=== PATIENT | male | born 1985 | race Two or more races ===

== ENCOUNTER 2017-03-13 01:22 | Emergency (ER) | payer OTHER ==
[~2017-03-13] VITALS: Ht 175.3 cm; Wt 90.7 kg
[~2017-03-13 01:22] MED LIST: OMEP20CA4 PO; PROP40TA7 PO
[2017-03-13] MEDS ORDERED: GABAPENTIN 800 MG TABLET (02:04)
[2017-03-13] MEDS ORDERED: IV NORMAL SALINE 1000 ML BAG IV ONE ×2 (02:45→06:15)
[2017-03-13] MEDS ORDERED: KETOROLAC TROMETHAMINE 15 MG INJ IV ONE (02:45)
[2017-03-13 03:05] LABS: BASOPHILS # (AUTO) 0.1 K/uL (0.0-8.0); BASOPHILS % (AUTO) 0.5 % (0.0-2.0); EOSINOPHILS # (AUTO) 0.5 K/uL (0.0-0.7); HEMATOCRIT 37.3 % (36.7-47.1); HEMOGLOBIN 12.7 g/dL (12.5-16.3); LYMPHOCYTES # (AUTO) 3.3 K/uL (20.0-40.0); LYMPHOCYTES % (AUTO) 33.3 % (20.5-51.5); MEAN CORPUSCULAR HEMOGLOBIN 29.8 uug (23.8-33.4); MEAN CORPUSCULAR HGB CONC 34 g/dL (32.5-36.3); MEAN CORPUSCULAR VOLUME 87.8 fL (73.0-96.2); MONOCYTES # (AUTO) 0.7 K/uL (2.0-10.0); MONOCYTES % (AUTO) 7.5 % (0.0-11.0); NEUTROPHILS # (AUTO) 5.4 K/uL (1.8-8.9); NEUTROPHILS % (AUTO) 53.7 % (38.5-71.5); PLATELET COUNT (AUTO) 203 K/uL (152-348); RED BLOOD CELL COUNT(AUTO) 4.25 MIL/uL (4.06-5.63)
[2017-03-13] MEDS ORDERED: KETOROLAC TROMETHAMINE 30 MG INJ ONE (03:12)
[2017-03-13 03:16] LABS: CARBON DIOXIDE 28 mmol/L (21-32); CHLORIDE 104 mmol/L (98-107); GLUCOSE 138 mg/dL (74-106); POTASSIUM 3.6 mmol/L (3.5-5.1); UREA NITROGEN, BLOOD 12 mg/dL (7-18)
[2017-03-13] MEDS ORDERED: ONDANSETRON IV *ER 4 MG/2 ML VIAL IV ONE ×2 (03:30→06:15)
[2017-03-13] MEDS ORDERED: HYDROMORPHONE 1 MG/1 ML DISP.SYRIN IV ONE ×2 (03:30→06:15)
[2017-03-13 03:36] LABS: ALANINE AMINOTRANSFERASE 40 U/L (16-63); ALKALINE PHOSPHATASE 95 U/L (50-136); ASPARTATE AMINOTRANSFERASE 18 U/L (15-37); BILIRUBIN,DIRECT < 0.1 mg/dL (0.0-0.2); BILIRUBIN,TOTAL 0.1 mg/dL (0.2-1.0); LIPASE 159 U/L (73-393); TOTAL PROTEIN, SERUM 6.5 g/dL (6.4-8.2)
[2017-03-13] MEDS ORDERED: ONDANSETRON 4 MG/2 ML VIAL ONE ×2 (03:55→06:29)
[2017-03-13] MEDS ORDERED: HYDROMORPHONE 2 MG/1 ML DISP.SYRIN ONE ×2 (03:55→06:29)
[2017-03-13 05:27] LABS: *BLOOD, URINE 3+ (NEGATIVE); *CLARITY,URINE SLIGHTLY CLOUDY (CLEAR); *COLOR,URINE YELLOW (YELLOW); *KETONES,URINE TRACE (NEGATIVE); *UROBILINOGEN,URINE 0.2 E.U./dl (NORMAL); LEUKOCYTE ESTERASE ,URINE NEGATIVE (NEGATIVE); NITRITE, URINE NEGATIVE (NEGATIVE); PH,URINE 7.5 (5.0-8.0); UGLUCOSE NEGATIVE (NEGATIVE)
[2017-03-13 05:28] LABS: *BILIRUBIN,URIN 1+ (NEGATIVE); *PROTEIN,URINE 1+ (NEGATIVE)
[2017-03-13 05:34] LABS: BACTERIA,URINE NONE SEEN /HPF (NONE SEEN); SQUAMOUS EPITHELIAL CELL,UR MODERATE /HPF (NONE SEEN); URINE AMORPHOUS PHOSPHATES MANY /HPF; WBC,URINE 0-3 /HPF (0-3)
[2017-03-13 05:35] LABS: MUCUS,URINE MODERATE /LPF (0-FEW)
--- NOTE | 2017-03-13 07:05 | NUR ---
Patient discharged to home in stable conditon. Written and verbal after care instructions given. Patient verbalizes understanding of instructions.
== END 2017-03-13 07:07 | disposition home or self-care (01) ==
LOC: ER 01:28
DX: G89.29 Other chronic pain (principal); R10.9 Unspecified abdominal pain; M54.9 Dorsalgia, unspecified; R11.2 Nausea with vomiting, unspecified; R31.9 Hematuria, unspecified; Z91.013 Allergy to seafood; G43.909 Migraine, unspecified, not intractable, without status migrainosus
CPT/HCPCS: 36415; 70030-TC; 83690; 85025; 85730; A4663; J1170; J1885; J2405; J7030

== ENCOUNTER 2017-11-26 14:31 | Emergency (ER) | payer OTHER ==
[~2017-11-26] VITALS: Ht 175.3 cm; Wt 93.0 kg
[~2017-11-26 14:31] MED LIST changes: +GABAPENTIN 800 MG TABLET
[2017-11-26] MEDS ORDERED: LACT10SO7 PO (15:06)
--- NOTE | 2017-11-26 15:07 | NUR ---
in room 5a
[2017-11-26] MEDS ORDERED: KETOROLAC TROMETHAMINE 30 MG INJ ONE (15:30)
[2017-11-26] MEDS ORDERED: DIAZEPAM 5 MG TABLET ONE ×2 (15:30→16:52)
[2017-11-26] MEDS ORDERED: MORPHINE SULFATE 4 MG/1 ML DISP.SYRIN ONE (15:31)
[2017-11-26] MEDS: MORPHINE SULFATE 2 MG/1 ML DISP.SYRIN IM ONE (15:41)
[2017-11-26] MEDS: KETOROLAC TROMETHAMINE 30 MG INJ IM ONE (15:41)
[2017-11-26] MEDS: DIAZEPAM 2 MG TABLET PO ONE ×2 (15:42→17:26)
[2017-11-26] MEDS ORDERED: OXYCODONE/APAP 5-325 MG TABLET ONE (16:35)
--- NOTE | 2017-11-26 16:39 | NUR ---
offered 2 tabs of percocet but did not want the nediations at present.
[2017-11-26] MEDS: OXYCODONE/APAP 5-325 MG TABLET PO ONE (16:42)
[2017-11-26] MEDS: IV NORMAL SALINE 500 ML BAG IV ONE (16:49)
[2017-11-26] MEDS ORDERED: METOCLOPRAMIDE HCL 10 MG/2 ML VIAL ONE (16:50)
[2017-11-26] MEDS ORDERED: HYDROMORPHONE 1 MG/1 ML DISP.SYRIN ONE (16:51)
[2017-11-26] MEDS: METOCLOPRAMIDE HCL 10 MG/2 ML VIAL IV ONE (16:57)
[2017-11-26 16:58] LABS: BASOPHILS # (AUTO) 0.1 K/uL (0.0-8.0); BASOPHILS % (AUTO) 0.7 % (0.0-2.0); EOSINOPHILS # (AUTO) 0.3 K/uL (0.0-0.7); EOSINOPHILS % (AUTO) 4.3 % (0.0-7.0); HEMATOCRIT 42.8 % (36.7-47.1); HEMOGLOBIN 14.4 g/dL (12.5-16.3); LYMPHOCYTES # (AUTO) 2.5 K/uL (20.0-40.0); LYMPHOCYTES % (AUTO) 30.3 % (20.5-51.5); MEAN CORPUSCULAR HEMOGLOBIN 30.1 uug (23.8-33.4); MEAN CORPUSCULAR HGB CONC 34 g/dL (32.5-36.3); MEAN CORPUSCULAR VOLUME 89.7 fL (73.0-96.2); MONOCYTES # (AUTO) 0.7 K/uL (2.0-10.0); MONOCYTES % (AUTO) 8.1 % (0.0-11.0); NEUTROPHILS # (AUTO) 4.6 K/uL (1.8-8.9); NEUTROPHILS % (AUTO) 56.6 % (38.5-71.5); PLATELET COUNT (AUTO) 188 K/uL (152-348); RED BLOOD CELL COUNT(AUTO) 4.78 MIL/uL (4.06-5.63); WHITE BLOOD COUNT (AUTO) 8.2 K/uL (3.6-10.2)
[2017-11-26] MEDS: HYDROMORPHONE 1 MG/1 ML DISP.SYRIN IV ONE (16:58)
[2017-11-26 17:06] LABS: CREATININE 0.8 mg/dL (0.6-1.3); POTASSIUM 4.1 mmol/L (3.5-5.1)
--- NOTE | 2017-11-26 17:31 | NUR ---
PT REFUSED CT. PT SAYS DOES NOT WANT THE RADIATION. WILL FOLLOW UP WITH PMD FOR MRI.
--- NOTE | 2017-11-26 17:44 | NUR ---
Patient discharged to home in stable conditon. Written and verbal after care instructions given. Patient verbalizes understanding of instructions.PT WALKS IN STEADY GAIT. PT TO TAKE THE PT HOME . PTNOT DRIVING. PT SAYS FEELS BETTER.
[2017-11-26 17:46] VITALS: BP 119/77
== END 2017-11-26 17:46 | disposition home or self-care (01) ==
LOC: ER 14:33
DX: M62.838 Other muscle spasm (principal); M79.602 Pain in left arm; R51 Headache; I10 Essential (primary) hypertension; Z91.013 Allergy to seafood
CPT/HCPCS: 36415; 85025; 85610; 85730; A4663; J1170; J1885; J2270; J2765; J7030

== ENCOUNTER 2017-12-03 20:45 | Emergency (ER) | payer OTHER ==
[~2017-12-03] VITALS: Ht 175.3 cm; Wt 90.7 kg
[~2017-12-03 20:45] MED LIST changes: +LACT10SO7 PO
[2017-12-03] MEDS ORDERED: HYDR-548 PO (21:00)
--- NOTE | 2017-12-03 21:06 | NUR ---
PT ARRIVED FROM HOME. PT A/OX4, PT ABLE TO SPEAK IN COMPLETE SENTENCES. RESPONSIVE TO VERBAL AND TACTILE STIMULI. PT WAS RECENTLY SEEN IN AN ER AND WAS FOUND TO HAVE INJURIES TO L SHOULDER/LINGAMENTS. PRIMARY COMPLAINT: PT C/O HEADACHE THAT STARTED 2 DAYS AGO. UNRELIEVED FROM [facility] . ASSESSMENT: NO PHOTOPHOBIA/DIPLOPIA/VISUAL DEFICITS/ NO NUCHAL RIGIDITY/ DENIES FEVERS/CHILLS. BACKGROUND: PT DENIES C/P, SOB, N/V. PT SELF-AMBULATED WITHOUT DIFFICULTY. PT STATES HEADACHE IS 7/10, NO PROVOKING FACTOR, THROBBING, RADIATES DOWN THE LEFT SIDE OF THE NECK, CONSTANT. PT HAS A SLING ON L ARM, hX TORN ROTATOR CUFF 1 WEEK AGO.
[2017-12-03] MEDS ORDERED: PANTOPRAZOLE SODIUM IV 40 MG in IV DEXTROSE 5% 100 ML IV ONE (21:26)
[2017-12-03] MEDS ORDERED: MORPHINE SULFATE 4 MG/1 ML DISP.SYRIN IV ONE (21:30)
[2017-12-03] MEDS ORDERED: IV NS 1000 ML 1,000 ML IV ONE ×2 (21:30→22:45)
[2017-12-03] MEDS ORDERED: methylPREDNISolone SOD SUCC 125 MG/2 ML VIAL IV ONE (21:30)
[2017-12-03] MEDS ORDERED: ONDANSETRON IV *ER 4 MG/2 ML VIAL IV ONE (21:30)
[2017-12-03] MEDS ORDERED: diphenhydrAMINE 50 MG/1 ML VIAL IV ONE (21:30)
[2017-12-03] MEDS ORDERED: MORPHINE SULFATE 4 MG/1 ML DISP.SYRIN ONE (21:45)
[2017-12-03] MEDS ORDERED: PANTOPRAZOLE SODIUM 40 MG VIAL ONE (21:45)
[2017-12-03] MEDS ORDERED: ONDANSETRON 4 MG/2 ML VIAL ONE (21:45)
[2017-12-03] MEDS ORDERED: diphenhydrAMINE 50 MG CAPSULE ONE (21:46)
[2017-12-03] MEDS ORDERED: methylPREDNISolone SOD SUCC 125 MG/2 ML VIAL ONE (21:46)
--- NOTE | 2017-12-03 21:57 | NUR ---
Dish [employer] Inspector at bedside.
[2017-12-03] MEDS ORDERED: diphenhydrAMINE 50 MG CAPSULE PO ONE (22:00)
--- NOTE | 2017-12-03 22:03 | NUR ---
PT REMAINS IN BED. MEDICATED PER MD ORDERS. PT VSS, NO ACUTE DISTRESS NOTED.
[2017-12-03 22:09] LABS: BASOPHILS # (AUTO) 0.1 K/uL (0.0-8.0); BASOPHILS % (AUTO) 0.7 % (0.0-2.0); EOSINOPHILS # (AUTO) 0.3 K/uL (0.0-0.7); EOSINOPHILS % (AUTO) 3.3 % (0.0-7.0); HEMATOCRIT 40.2 % (36.7-47.1); HEMOGLOBIN 13.8 g/dL (12.5-16.3); LYMPHOCYTES # (AUTO) 3.2 K/uL (20.0-40.0); LYMPHOCYTES % (AUTO) 32.3 % (20.5-51.5); MEAN CORPUSCULAR HEMOGLOBIN 30.6 uug (23.8-33.4); MEAN CORPUSCULAR HGB CONC 34 g/dL (32.5-36.3); MEAN CORPUSCULAR VOLUME 89.2 fL (73.0-96.2); MONOCYTES # (AUTO) 0.7 K/uL (2.0-10.0); MONOCYTES % (AUTO) 6.8 % (0.0-11.0); NEUTROPHILS # (AUTO) 5.6 K/uL (1.8-8.9); NEUTROPHILS % (AUTO) 56.9 % (38.5-71.5); PLATELET COUNT (AUTO) 193 K/uL (152-348); RED BLOOD CELL COUNT(AUTO) 4.51 MIL/uL (4.06-5.63); WHITE BLOOD COUNT (AUTO) 9.8 K/uL (3.6-10.2)
[2017-12-03 22:17] LABS: CREATININE 0.8 mg/dL (0.6-1.3); POTASSIUM 3.4 mmol/L (3.5-5.1)
[2017-12-03 22:24] LABS: BILIRUBIN,TOTAL 0.2 mg/dL (0.2-1.0)
[2017-12-03] MEDS ORDERED: HYDROMORPHONE 1 MG/1 ML DISP.SYRIN IV ONE (22:45)
[2017-12-03] MEDS ORDERED: HYDROMORPHONE 1 MG/1 ML DISP.SYRIN ONE ×2 (22:46→23:54)
--- NOTE | 2017-12-03 23:01 | NUR ---
Patient in bed, no acute distress noted. patient is endorsing pain relief at this time. VSS
[2017-12-04] MEDS ORDERED: HYDROMORPHONE 1 MG/1 ML DISP.SYRIN IV ONE (00:15)
--- NOTE | 2017-12-04 00:20 | NUR ---
Patient discharged to home in stable conditon. Written and verbal after care instructions given. Patient verbalizes understanding of instructions. Ambulated from ER with stable gait. All belongings with patient. Peripheral IV removed prior to d/c. Patient will be driven home by in private vehicle.
[2017-12-04 00:21] VITALS: BP 131/70
== END 2017-12-04 00:22 | disposition home or self-care (01) ==
LOC: ER 20:46
DX: G43.909 Migraine, unspecified, not intractable, without status migrainosus (principal); G89.29 Other chronic pain; M25.512 Pain in left shoulder; I10 Essential (primary) hypertension; Z91.013 Allergy to seafood
CPT/HCPCS: 36415; 85025; A4663; C9113; J1170; J2270; J2405; J2930; J7030; Q0163

== ENCOUNTER 2017-12-24 21:05 | Emergency (ER) | payer OTHER ==
[~2017-12-24] VITALS: Ht 175.3 cm; Wt 90.7 kg
[~2017-12-24 21:05] MED LIST changes: +HYDR-548 PO
[2017-12-24] MEDS ORDERED: HYDROMORPHONE 1 MG/1 ML DISP.SYRIN IM ONE (22:15)
[2017-12-24] MEDS ORDERED: ONDANSETRON 4 MG/2 ML VIAL IM ONE (22:15)
[2017-12-24] MEDS ORDERED: HYDROMORPHONE 2 MG/1 ML DISP.SYRIN ONE (22:20)
[2017-12-24] MEDS ORDERED: ONDANSETRON 4 MG/2 ML VIAL ONE (22:20)
--- NOTE | 2017-12-24 22:30 | NUR ---
Patient discharged to home in stable conditon. Written and verbal after care instructions given. Patient verbalizes understanding of instructions. Pt ambulated out of ER in steady gait. All belongings with pt. Pt states he will not drive home and has someone to pick him up. VSS.
[2017-12-24 22:41] VITALS: BP 132/88
== END 2017-12-24 22:42 | disposition home or self-care (01) ==
LOC: ER 21:07
DX: G89.11 Acute pain due to trauma (principal); M25.512 Pain in left shoulder; Z91.013 Allergy to seafood; V57.5XXA Driver of pick-up truck or van injured in collision with fixed or stationary object in traffic accident, initial encounter; Y93.89 Activity, other specified; Y92.410 Unspecified street and highway as the place of occurrence of the external cause; Y99.8 Other external cause status
CPT/HCPCS: 72040; 73000; 73030; 96372 ×2; 99284; A4663; J1170; J2405

== ENCOUNTER 2018-01-03 22:36 | Emergency (ER) | payer OTHER ==
[~2018-01-03] VITALS: Ht 175.3 cm; Wt 90.7 kg
[2018-01-03] MEDS ORDERED: ONDA4TAB8 PO (22:54)
--- NOTE | 2018-01-03 22:56 | NUR ---
Dr. Hoyos at bedside for MSE.
[2018-01-03] MEDS ORDERED: ONDANSETRON 4 MG/2 ML VIAL IV ONE (23:15)
[2018-01-03] MEDS ORDERED: diphenhydrAMINE 50 MG/1 ML VIAL IV ONE (23:15)
[2018-01-03] MEDS ORDERED: HYDROCODONE/APAP 5-325MG TABLET PO ONE (23:15)
[2018-01-03] MEDS ORDERED: IV NORMAL SALINE 1000 ML BAG IV ONE (23:15)
[2018-01-03] MEDS ORDERED: HYDROCODONE/APAP 5-325MG TABLET ONE (23:17)
[2018-01-03] MEDS ORDERED: ONDANSETRON 4 MG/2 ML VIAL ONE ×2 (23:17→23:56)
[2018-01-03] MEDS ORDERED: IOHEXOL 300MG/ML 100 ML INFUS..BTL ONE (23:19)
[2018-01-03] MEDS ORDERED: NORMAL SALINE FLUSH 10 ML DISP.SYRIN ONE (23:19)
[2018-01-03] MEDS ORDERED: IV NORMAL SALINE 250 ML IV ONE (23:19)
[2018-01-03] MEDS ORDERED: SWABABLE VALVE TRANSFER SET EA MC ONE (23:19)
[2018-01-03] MEDS ORDERED: diphenhydrAMINE 50 MG/1 ML VIAL ONE (23:28)
--- NOTE | 2018-01-03 23:31 | NUR ---
Pt out of ER for CT.
[2018-01-03 23:39] LABS: BASOPHILS % (AUTO) 0.5 % (0.0-2.0); CARBON DIOXIDE 29 mmol/L (21-32); CHLORIDE 102 mmol/L (98-107); CREATININE 0.8 mg/dL (0.6-1.3); EOSINOPHILS # (AUTO) 0.4 K/uL (0.0-0.7); EOSINOPHILS % (AUTO) 4.7 % (0.0-7.0); GLUCOSE 98 mg/dL (74-106); HEMOGLOBIN 13.5 g/dL (12.5-16.3); LYMPHOCYTES # (AUTO) 3.6 K/uL (20.0-40.0); LYMPHOCYTES % (AUTO) 39.2 % (20.5-51.5); MEAN CORPUSCULAR HEMOGLOBIN 30.1 uug (23.8-33.4); MEAN CORPUSCULAR HGB CONC 35 g/dL (32.5-36.3); MEAN CORPUSCULAR VOLUME 86.8 fL (73.0-96.2); MONOCYTES # (AUTO) 0.7 K/uL (2.0-10.0); MONOCYTES % (AUTO) 7.8 % (0.0-11.0); NEUTROPHILS # (AUTO) 4.4 K/uL (1.8-8.9); NEUTROPHILS % (AUTO) 47.8 % (38.5-71.5); PLATELET COUNT (AUTO) 216 K/uL (152-348); POTASSIUM 3.8 mmol/L (3.5-5.1); UREA NITROGEN, BLOOD 13 mg/dL (7-18); WHITE BLOOD COUNT (AUTO) 9.2 K/uL (3.6-10.2)
[2018-01-03 23:45] LABS: ALANINE AMINOTRANSFERASE 40 U/L (16-63); ALKALINE PHOSPHATASE 92 U/L (50-136); ASPARTATE AMINOTRANSFERASE 14 U/L (15-37); BILIRUBIN,DIRECT < 0.1 mg/dL (0.0-0.2); BILIRUBIN,TOTAL 0.2 mg/dL (0.2-1.0); TOTAL PROTEIN, SERUM 7.2 g/dL (6.4-8.2)
--- NOTE | 2018-01-03 23:55 | NUR ---
Patient back to ER from CT.
[2018-01-03] MEDS ORDERED: MORPHINE SULFATE 2 MG/1 ML DISP.SYRIN ONE (23:56)
--- NOTE | 2018-01-04 00:02 | NUR ---
Patient provided urine sample, sent to lab.
[2018-01-04] MEDS ORDERED: ONDANSETRON 4 MG/2 ML VIAL IV ONE (00:15)
[2018-01-04] MEDS ORDERED: MORPHINE SULFATE 2 MG/1 ML DISP.SYRIN IV ONE ×2 (00:15→01:15)
[2018-01-04 00:26] LABS: *BILIRUBIN,URIN NEGATIVE (NEGATIVE); *BLOOD, URINE 3+ (NEGATIVE); *CLARITY,URINE CLOUDY (CLEAR); *COLOR,URINE RED (YELLOW); *KETONES,URINE NEGATIVE (NEGATIVE); *PROTEIN,URINE NEGATIVE (NEGATIVE); *UROBILINOGEN,URINE 0.2 E.U./dl (NORMAL); LEUKOCYTE ESTERASE ,URINE NEGATIVE (NEGATIVE); NITRITE, URINE NEGATIVE (NEGATIVE); UGLUCOSE NEGATIVE (NEGATIVE)
--- NOTE | 2018-01-04 00:37 | NUR ---
Pt states abdominal pain a little better now about 5-6.
[2018-01-04 00:45] LABS: RBC,URINE TNTC /HPF (0-3); WBC,URINE NONE SEEN /HPF (0-3)
[2018-01-04 00:46] LABS: BACTERIA,URINE NONE SEEN /HPF (NONE SEEN); SQUAMOUS EPITHELIAL CELL,UR NONE SEEN /HPF (NONE SEEN)
[2018-01-04] MEDS ORDERED: MORPHINE SULFATE 2 MG/1 ML DISP.SYRIN ONE (01:03)
--- NOTE | 2018-01-04 01:38 | NUR ---
Patient discharged to home in stable conditon. Written and verbal after care instructions given. Patient verbalizes understanding of instructions. Patient ambulated out of ER with steady gait, no acute signs of distress, VSS, all belongings taken, provided with lab and CT results, IV site discontinued.
[2018-01-04 01:40] VITALS: BP 152/69
== END 2018-01-04 01:41 | disposition home or self-care (01) ==
LOC: ER 22:39
DX: R31.9 Hematuria, unspecified (principal); R10.32 Left lower quadrant pain; Z91.013 Allergy to seafood
CPT/HCPCS: 36415; 74177; 80048; 80076; 81001; 85025; 85730; 86850; 86900; 86901; 96374; 96375; 96376; 99285; J1200; J2270 ×2; J2405 ×2; Q9967; A4663; J3490; J7030; J7050

== ENCOUNTER 2018-03-05 18:45 | Emergency (ER) | payer OTHER ==
[~2018-03-05] VITALS: Ht 175.3 cm; Wt 90.7 kg
[~2018-03-05 18:45] MED LIST changes: +GABA600T12 PO; +HYDR-4354 PO; -HYDR-548 PO; +ONDA4TAB8 PO; -PROP40TA7 PO
--- NOTE | 2018-03-05 19:04 | NUR ---
SH[facility] ROCK AT BEDSIDE FOR MSE.
--- NOTE | 2018-03-05 19:11 | NUR ---
Patient discharged to home in stable conditon. Written and verbal after care instructions given. Patient verbalizes understanding of instructions. PT D/C W/ PRESCRIPTION. ALL BELONGINGS W/ PT. PT SELF-AMBULATED W/O DIFFICULTY.
[2018-03-05 19:12] VITALS: BP 140/85
== END 2018-03-05 19:13 | disposition home or self-care (01) ==
LOC: ER 18:46
DX: M54.42 Lumbago with sciatica, left side (principal); Z87.442 Personal history of urinary calculi; Z88.2 Allergy status to sulfonamides
CPT/HCPCS: A4663

== ENCOUNTER 2018-04-30 16:35 | Emergency (ER) | payer OTHER ==
[~2018-04-30] VITALS: Ht 175.3 cm; Wt 90.7 kg
[2018-04-30 17:06] LABS: BASOPHILS # (AUTO) 0.1 K/uL (0.0-8.0); BASOPHILS % (AUTO) 0.8 % (0.0-2.0); EOSINOPHILS # (AUTO) 0.4 K/uL (0.0-0.7); EOSINOPHILS % (AUTO) 4.8 % (0.0-7.0); HEMATOCRIT 40.6 % (36.7-47.1); HEMOGLOBIN 13.6 g/dL (12.5-16.3); LYMPHOCYTES # (AUTO) 2.7 K/uL (20.0-40.0); LYMPHOCYTES % (AUTO) 31.9 % (20.5-51.5); MEAN CORPUSCULAR HEMOGLOBIN 29.3 uug (23.8-33.4); MEAN CORPUSCULAR HGB CONC 34 g/dL (32.5-36.3); MEAN CORPUSCULAR VOLUME 87.7 fL (73.0-96.2); MONOCYTES # (AUTO) 0.6 K/uL (2.0-10.0); NEUTROPHILS # (AUTO) 4.7 K/uL (1.8-8.9); NEUTROPHILS % (AUTO) 55.5 % (38.5-71.5); PLATELET COUNT (AUTO) 205 K/uL (152-348); RED BLOOD CELL COUNT(AUTO) 4.63 MIL/uL (4.06-5.63); WHITE BLOOD COUNT (AUTO) 8.5 K/uL (3.6-10.2)
[2018-04-30 17:13] LABS: CREATININE 0.8 mg/dL (0.6-1.3); POTASSIUM 4.2 mmol/L (3.5-5.1)
[2018-04-30 17:18] LABS: BILIRUBIN,DIRECT 0.1 mg/dL (0.0-0.2); BILIRUBIN,TOTAL 0.3 mg/dL (0.2-1.0); TOTAL PROTEIN, SERUM 7.5 g/dL (6.4-8.2)
[2018-04-30 17:20] LABS: *BILIRUBIN,URIN NEGATIVE (NEGATIVE); *BLOOD, URINE 3+ (NEGATIVE); *CLARITY,URINE CLOUDY (CLEAR); *KETONES,URINE NEGATIVE (NEGATIVE); *UROBILINOGEN,URINE 0.2 E.U./dl (NORMAL); LEUKOCYTE ESTERASE ,URINE NEGATIVE (NEGATIVE); NITRITE, URINE NEGATIVE (NEGATIVE); UGLUCOSE NEGATIVE (NEGATIVE)
[2018-04-30 17:30] LABS: *COLOR,URINE Brown (YELLOW)
[2018-04-30] MEDS ORDERED: KETOROLAC TROMETHAMINE 30 MG INJ IM ONE (17:30)
[2018-04-30] MEDS ORDERED: KETOROLAC TROMETHAMINE 30 MG INJ ONE (17:30)
--- NOTE | 2018-04-30 17:30 | NUR ---
PT REFUSES CT AND TORADOL SHOT AT THIS POINT. Addendum: 04/30/18 at 1800 by MOOKIE PT REQUESTING NARCOTICS, BUT PT HAS NO RIDE AT THIS POINT AND PT YOUNG SON IS WITH THE PT.
[2018-04-30 17:31] LABS: RBC,URINE TNTC /HPF (0-3); SQUAMOUS EPITHELIAL CELL,UR FEW /HPF (NONE SEEN)
[2018-04-30 17:32] LABS: MUCUS,URINE MODERATE /LPF (0-FEW)
--- NOTE | 2018-04-30 17:58 | NUR ---
PT RECIEVED THE COPY OF THE BLOOD AND UA. [facility] EXPLAINED THE RESULTS TO THE PT. PT ELOPED.
== END 2018-04-30 18:03 | disposition home or self-care (01) ==
LOC: ER 16:35
DX: R31.9 Hematuria, unspecified (principal); R74.0 Nonspecific elevation of levels of transaminase and lactic acid dehydrogenase [LDH]; Z91.013 Allergy to seafood; Z79.899 Other long term (current) drug therapy
CPT/HCPCS: 36415; 83690; 85025; A4663; J1885

== ENCOUNTER 2023-04-28 17:52 | Emergency (ER) | payer OTHER ==
[~2023-04-28] VITALS: Ht 175.3 cm; Wt 79.4 kg
[2023-04-28 17:55] VITALS: O2SAT 97
[2023-04-28] MEDS ORDERED: NAPR500T6 PO (19:01)
[2023-04-28] MEDS ORDERED: AMOX-430 PO (19:01)
[2023-04-28] MEDS ORDERED: NAPROXEN 500 MG TABLET ONE (19:02)
[2023-04-28] MEDS ORDERED: AMOXICILLIN-CLAVUL 875-125MG TABLET ONE (19:03)
[2023-04-28] MEDS: AMOXICILLIN-CLAVUL 875-125MG TABLET PO ONE (19:07)
[2023-04-28] MEDS: NAPROXEN 500 MG TABLET PO ONE (19:07)
== END 2023-04-28 19:09 | disposition home or self-care (01) ==
LOC: ER 17:54
DX: K08.89 Other specified disorders of teeth and supporting structures (principal); Z98.890 Other specified postprocedural states; Z79.899 Other long term (current) drug therapy; Z91.013 Allergy to seafood
CPT/HCPCS: A4606; A4663